=== PATIENT | male | born 1945 | race Caucasian/White ===

== ENCOUNTER 2021-03-29 10:48 | Emergency (ER) | payer OTHER, SELFPAY ==
[2021-03-29] VITALS (15 sets, daily range): BP systolic 147–180; BP diastolic 78–107; PULSE 80–98; RESP 16–32; TEMP 36.6; O2SAT 91–97; BMI 24.4
--- NOTE | 2021-03-29 11:13 | ED_ITS ---
HPI - Abdominal Pain General Chief Complaint: Urogenital-Male Stated Complaint: pee or poop for 4 days Time Seen by Provider: 03/29/21 11:05 History of Present Illness HPI narrative: Patient is 75-year-old male history of diabetes presenting with inability to have a bowel movement or urinate for 4 days. He states has not urinated for 4 days he occasionally has some dribbling. He said increased abdominal distention and no bowel movement either. Prior history of exploratory laparotomy. He denies any nausea vomiting fever. He has no chest pain. He is in quite a bit of discomfort. Bladder scan only shows 297. He does self cath at home. He has been doing intermittently over the last 4 days. Does not remember when his last bowel movement was Related Data Home Medications Medication Instructions Recorded Confirmed CA PANTOTHENATE/FOLIC ACID/VIT 1 tab PO QDAY #0 08/01/12 (MULTIVITAMIN) Doxazosin Mesylate (DOXAZOSIN) 8 mg PO HS #0 08/01/12 Oxycodone (OXYCODONE IR) 10 mg PO TID #0 08/01/12 POLYETHYLENE GLYCOL 3350 17 gm PO QDAY #0 08/01/12 atorvastatin 40 mg tablet (Lipitor) 40 mg PO HS #0 08/01/12 baclofen 10 mg tablet 10 mg PO TID #0 08/01/12 citalopram 20 mg tablet 20 mg PO QDAY #0 08/01/12 clonazepam 0.5 mg tablet 0.5 mg PO TID #0 08/01/12 docusate sodium 250 mg capsule 250 mg PO BID #0 08/01/12 omeprazole 20 mg capsule,delayed 20 mg PO QDAY #0 08/01/12 release warfarin 7.5 mg tablet (Coumadin) 7.5 mg PO QDAY #0 08/01/12 Previous Rx's Medication Instructions Recorded magnesium citrate 300 ml PO DAILY PRN #296 ml 03/29/21 Allergies Allergy/AdvReac Type Severity Reaction Status Date / Time THORAZINE Allergy Intermediate Uncoded 12/28/17 12:23 ADHESIVE Allergy Unknown Uncoded 12/28/17 12:23 Review of Systems Review of Systems Narrative: GENERAL: Denies chills, fatigue, malaise, fever, sweats, travel HEENT: Denies sinus pain, ear pain, sore throat, difficulty swallowing, neck pain RESPIRATORY: Denies dyspnea, cough, wheezing, hemoptysis, sputum. CARDIOVASCULAR: Denies chest pain, palpitations, orthopnea, edema GASTROINTESTINAL: See HPI : See HPI history of BPH MUSCULOSKELETAL: Denies weakness, joint pain, or bony pain SKIN: No rash, no erythema, no pruritus NEUROLOGIC: Denies weakness, dizziness, headache, numbness, change in speech, confusion PSYCHIATRIC: No concerning psychosocial issues. 12 point review of systems is negative except for those stated above and HPI Exam Initial Vital Signs Initial Vital Signs: Vital Signs Temperature 97.9 F 03/29/21 10:55 Pulse Rate 85 03/29/21 10:55 Respiratory Rate 18 03/29/21 10:55 Blood Pressure 180/104 H 03/29/21 10:55 Pulse Oximetry 97 03/29/21 10:55 GENERAL: Alert 75 year appears uncomfortable HEENT: Head atraumatic,EOMI, pupils reactive, face symmetric, [moist] mucous membranes CARDIOVASCULAR: Regular rate and rhythm without murmurs, rubs or gallops. RESPIRATORY: Breath sounds equal bilaterally, no wheezes rales or rhonchi. ABDOMEN: Distention decreased bowel sounds scar noted no localization of pain no guarding or rebound EXTREMITIES: Normal range of motion, no clubbing or edema. Neurovascularly intact NEUROLOGICAL: Alert and oriented x4.Normal gait and speech. Cranial nerves II through XII grossly intact. SKIN: Warm, dry, no laceration, no petechiae, no rashes or lesions. Course Orders Ordered: ED Orders 03/29/21 11:13 CT abdomen pelvis w con Stat 03/29/21 11:31 Urine Microscopic Stat 03/29/21 12:50 EKG-12 Lead Stat 03/29/21 13:15 Complete Blood Count AUTO DIFF Stat Comprehensive Metabolic Panel Stat Lipase Stat Troponin & CK Cardiac Panel Stat Discontinued Medications Sodium Chloride (Normal Saline 0.9%) 1,000 mls @ 1,000 mls/hr IV BOLUS ONE Stop: 03/29/21 14:34 Last Infusion: 03/29/21 15:27 Dose: 0 mls/hr Documented by: Admin: 03/29/21 13:46 Dose: 1,000 mls/hr Documented by: ANAMARIA Lidocaine HCl (Lidocaine 2% (Glydo) 6 Ml Gel) 12 ml TOP NOW ONE Stop: 03/29/21 14:16 Last Admin: 03/29/21 14:28 Dose: 12 ml Documented by: MINO Morphine Sulfate (Morphine 2 Mg/Ml Inj) 2 mg IV NOW ONE Stop: 03/29/21 12:21 Last Admin: 03/29/21 12:48 Dose: 2 mg Documented by: ANAMARIA Ondansetron HCl (Ondansetron 4 Mg/2 Ml Inj) 4 mg IV NOW ONE Stop: 03/29/21 12:21 Last Admin: 03/29/21 12:48 Dose: 4 mg Documented by: ANAMARIA Vital Signs Vital signs: Vital Signs - 8 hr 03/29/21 12:43 03/29/21 12:45 03/29/21 12:47 Pulse Rate 96 H 98 H 85 Respiratory Rate 32 H 31 H 21 Blood Pressure 176/107 H Pulse Oximetry 96 03/29/21 13:00 03/29/21 13:01 03/29/21 13:15 Pulse Rate 82 86 81 Respiratory Rate 18 16 22 Blood Pressure 147/78 H Pulse Oximetry 93 94 93 03/29/21 13:37 03/29/21 13:45 03/29/21 14:13 Pulse Rate 85 82 80 Respiratory Rate 20 19 17 Blood Pressure 166/84 H Pulse Oximetry 91 92 96 03/29/21 14:15 03/29/21 14:30 03/29/21 14:45 Pulse Rate 85 80 83 Respiratory Rate 22 20 22 Blood Pressure Pulse Oximetry 96 95 03/29/21 15:00 03/29/21 15:26 Pulse Rate 80 80 Respiratory Rate 18 18 Blood Pressure 174/89 H Pulse Oximetry 94 95 MDM - Abdominal Pain Lab Data Result diagrams: 03/29/21 13:15 03/29/21 13:15 Labs: Lab Results 03/29/21 03/29/21 03/29/21 Range/Units 11:31 13:15 13:15 WBC 6.0 (4.5-11.0) X10^3/uL RBC 4.54 (4.5-5.9) X10^6/uL Hgb 14.8 (13.5-17.5) g/dL Hct 43.7 (41-53) % MCV 96.3 (80-100) fL MCH 32.7 (26-34) PG MCHC 34.0 (30-36) % RDW 13.6 (11.6-14.8) % Plt Count 180 (150-400) X10^3/uL Neut % (Auto) 65.8 (50-75) % Lymph % (Auto) 21.7 L (25-40) % [place] % (Auto) 9.6 (3-14) % Eos % (Auto) 2.1 (2-4) % Baso % (Auto) 0.8 (0-2) % Neut # (Auto) 3900 (7857-2887) /uL Lymph # (Auto) 1300 (8739-4377) /uL [place] # (Auto) 600 (0-900) /uL Eos # (Auto) 100 (0-450) /uL Baso # (Auto) 0 (0-100) /uL Sodium 142 (137-145) mmol/L Potassium 4.7 (3.4-5.1) mmol/L Chloride 107 (98-107) mmol/L Carbon Dioxide 26 (22-32) mmol/L BUN 20 (9-20) mg/dL Creatinine 0.62 L (0.66-1.25) mg/dL Estimated GFR > 60.0 (>60) mL/min BUN/Creatinine Ratio 32.3 H (6-22) Glucose 144 H (80-110) mg/dL Calcium 10.4 H (8.4-10.2) mg/dL Total Bilirubin 1.5 H (0.2-1.3) mg/dL AST 36 (17-59) IU/L ALT 54 H (<50) IU/L Alkaline Phosphatase 72 (38-126) U/L Total Creatine Kinase (55-170) U/L CK-MB (CK-2) CK-MB (CK-2) Rel Index Troponin I (0.01-0.034) ng/mL Total Protein 7.2 (6.3-8.2) g/dL Albumin 4.4 (3.5-5.0) g/dL Globulin 2.8 (1.7-4.1) g/dL Albumin/Globulin Ratio 1.6 (1.0-2.8) Lipase 102 (23-300) U/L Urine RBC 0-1/hpf (0-5/HPF) Urine WBC None seen (0-5/HPF) Amorphous Sediment 1+ Urine Bacteria None seen (None) Ur Culture Indicated? Cult not indicated 03/29/21 Range/Units 13:15 WBC (4.5-11.0) X10^3/uL RBC (4.5-5.9) X10^6/uL Hgb (13.5-17.5) g/dL Hct (41-53) % MCV (80-100) fL MCH (26-34) PG MCHC (30-36) % RDW (11.6-14.8) % Plt Count (150-400) X10^3/uL Neut % (Auto) (50-75) % Lymph % (Auto) (25-40) % [place] % (Auto) (3-14) % Eos % (Auto) (2-4) % Baso % (Auto) (0-2) % Neut # (Auto) (5205-4263) /uL Lymph # (Auto) (7812-2961) /uL [place] # (Auto) (0-900) /uL Eos # (Auto) (0-450) /uL Baso # (Auto) (0-100) /uL Sodium (137-145) mmol/L Potassium (3.4-5.1) mmol/L Chloride (98-107) mmol/L Carbon Dioxide (22-32) mmol/L BUN (9-20) mg/dL Creatinine (0.66-1.25) mg/dL Estimated GFR (>60) mL/min BUN/Creatinine Ratio (6-22) Glucose (80-110) mg/dL Calcium (8.4-10.2) mg/dL Total Bilirubin (0.2-1.3) mg/dL AST (17-59) IU/L ALT (<50) IU/L Alkaline Phosphatase (38-126) U/L Total Creatine Kinase 43 L (55-170) U/L CK-MB (CK-2) TNP CK-MB (CK-2) Rel Index TNP Troponin I < 0.012 (0.01-0.034) ng/mL Total Protein (6.3-8.2) g/dL Albumin (3.5-5.0) g/dL Globulin (1.7-4.1) g/dL Albumin/Globulin Ratio (1.0-2.8) Lipase (23-300) U/L Urine RBC (0-5/HPF) Urine WBC (0-5/HPF) Amorphous Sediment Urine Bacteria (None) Ur Culture Indicated? Point of care testing: Urine Dip Bedside Urine Glucose Negative Bedside Urine Bilirubin + 1 Bedside Urine Ketone +/- 5 Urine Specific [place] 1.030 Bedside Urine Occult Blood - Negative Bedside Urine pH 6.0 Bedside Urine Protein - Negative Bedside Urine Urobilinogen - Negative Bedside Urine Nitrite - Negative Imaging Data CT scan - abdomen/pelvis: Radiologist's Impression: PROCEDURE: CT ABDOMEN PELVIS W CON INDICATIONS: ab pain TECHNIQUE: After the administration of intravenous contrast, axial sections acquired from the lung bases to the pubic symphysis. Coronal and sagittal reformats were performed. For radiation dose reduction, the following was used: automated exposure control, adjustment of mA and/or kV according to patient size. COMPARISON: None. FINDINGS: Image quality: Excellent. Lung bases: Lingula scars and atelectasis. Heart: No significant findings. ABDOMEN: Liver: There is moderate hepatic steatosis. Liver is normal in size. Gallbladder: Gallbladder is normal. Biliary ducts: Unremarkable. Pancreas: Unremarkable. Spleen: Unremarkable. Adrenal Glands: Unremarkable. Kidneys and Ureters: Probably peripelvic cysts in left kidney but mild hydronephrosis cannot be excluded. There is a 1.8 cm exophytic cyst in left kidney. There is a 2.6 cm diameter cortical cyst in right kidney. No renal stones. Stomach and Bowel: There is a large amount of stool in colon. Stomach, small bowel loops, and colon are unremarkable. Peritoneum: No abnormal intraperitoneal fluid. No free air. Ventral Wall: No hernias. Abdominal Nodes: No retroperitoneal or mesenteric adenopathy by size criteria. Vessels: Aorta and inferior vena cava are normal in size. PELVIS: Pelvic Organs: Unremarkable. Bladder: Bladder wall may be thickened. Bladder is contracted with a Julian catheter. Pelvic Nodes: No enlarged lymph nodes. Miscellaneous: There is a fat containing left inguinal hernia. Bones: Mild scoliosis. Degenerative changes in lumbar spine. IMPRESSION: 1. Probably parapelvic left renal cysts although mild hydronephrosis cannot be excluded. No renal stones. 2. Hepatic steatosis. 3. A large amount of stool in colon. 4. Bladder wall may be thickened. Bladder is contracted with a Julian catheter. Dictated by: Ari Rodriguez M.D. on 03/29/2021 at 15:02 ECG Data Interpretation: Select normal sinus rhythm rate 81 VT interval 172 QRS [address] changes no T-wave inversions, no priors MDM Narrative Medical decision making narrative: Patient had Julian catheter placed 150 mL was removed. Patient was sitting on commode trying have a bowel movement BP he feels pressure in his rectum. He actually had a syncopal episode while Vals alvaing. Patient was disimpacted by nursing staff and he had a bowel movement. He overall feels significantly better. CT shows large amount of stool. He overall feels pretty unable to go home. Julian catheter is removed he has self catheterization supplies at home. Discussed with him he needs to use them has specially if he is not urinating. Also recommended stool softeners to help with bowel movements. Discharge Plan Departure Patient Disposition: Home Clinical Impression: Constipation, Acute urinary retention Instructions: DI for Constipation, DI for Urinary Retention in Men Activity Restrictions/Additional Instructions: *You have been diagnosed with constipation and urinary retention *What to do: At this time please self catheterizes every 6-8 hours if you have not urinated on her own. Increase water intake, it will help with stool. *Continue to take medications as directed MiraLax once daily Magnesium citrate 300 mL once daily until stool *Follow up with your primary care provider in 2-3 days *Return to ER if you should have increasing abdominal pain, fever, vomiting or any new, worsening or concerning symptoms Prescriptions: New magnesium citrate Solution 300 ml PO DAILY PRN (Reason: constipation) Qty: 296 RF: 0 No Action atorvastatin [Lipitor] 40 MG tablet 40 mg PO HS Qty: 0 RF: 0 citalopram 20 MG tablet 20 mg PO QDAY Qty: 0 RF: 0 omeprazole 20 MG capsule,delayed release(DR/EC) 20 mg PO QDAY Qty: 0 RF: 0 clonazepam 0.5 MG tablet 0.5 mg PO TID Qty: 0 RF: 0 docusate sodium 250 MG capsule 250 mg PO BID Qty: 0 RF: 0 CA PANTOTHENATE/FOLIC ACID/VIT (MULTIVITAMIN) 1 tab PO QDAY Qty: 0 RF: 0 Doxazosin Mesylate (DOXAZOSIN) 8 mg PO HS Qty: 0 RF: 0 Oxycodone (OXYCODONE IR) 10 mg PO TID Qty: 0 RF: 0 warfarin [Coumadin] 7.5 MG tablet 7.5 mg PO QDAY Qty: 0 RF: 0 baclofen 10 MG tablet 10 mg PO TID Qty: 0 RF: 0 POLYETHYLENE GLYCOL 3350 17 gm PO QDAY Qty: 0 RF: 0 Referrals: Lizandro Badillo MD [Primary Care Provider] -
--- NOTE | 2021-03-29 12:38 | PC.NURSE ---
urine retention and constipation x 4 days, bladder scan approx 300 cc, cath placed 750 cc andrew urine obtained
[2021-03-29 12:41] LABS: Bacteria Urine None Seen; WBC Urine None Seen (0-5/HPF)
[2021-03-29] MEDS: ONDANSETRON 4 MG/2 ML INJ IV (12:48)
[2021-03-29] MEDS: MORPHINE 2 MG/ML INJ IV (12:48)
[2021-03-29 12:49] LABS: Amorphous Sediment Urine 1+; Culture Indicated Urine Cult Not Indicated; RBC Urine 0-1/HPF (0-5/HPF)
--- NOTE | 2021-03-29 13:11 | PC.NURSE ---
While up to commode, patient had episode where he was not talking and dropped head to chest. With stimulation became a/o and was able to transfer back to the bed w/ 1 assist. environmental monitoring technician showed no change, remained in NSR in the 80s. Pt denies chest pain, shortness of breath. Requesting Dilaudid for abd pain. Discussed morphine vs dilaudid and pt was given ordered morphine.
[2021-03-29 13:21] LABS: Add Manual Diff / Slide Review NO; Basophils Absolute Auto 0 /uL (0-100); Basophils Percent Auto 0.8 % (0-2); Eosinophils Absolute Auto 100 /uL (0-450); Eosinophils Percent Auto 2.1 % (2-4); Hematocrit 43.7 % (41-53); Hemoglobin 14.8 g/dL (13.5-17.5); Lymphocytes Absolute Auto 1300 /uL (1100-4500); Lymphocytes Percent Auto 21.7 % (25-40); Mean Corpuscular Hemoglobin 32.7 PG (26-34); Mean Corpuscular Volume 96.3 fL (80-100); Monocytes Absolute Auto 600 /uL (0-900); Monocytes Percent Auto 9.6 % (3-14); Neutrophils Absolute Auto 3900 /uL (1500-7000); Neutrophils Percent Auto 65.8 % (50-75); Platelet Count 180 X10^3/uL (150-400); Red Blood Cell Count 4.54 X10^6/uL (4.5-5.9); Red Cell Distribution Width 13.6 % (11.6-14.8)
[2021-03-29 13:33] LABS: Alanine Aminotransferase 54 IU/L (<50); Albumin 4.4 g/dL (3.5-5.0); Albumin Globulin Ratio 1.6 (1.0-2.8); Alkaline Phosphatase 72 U/L (38-126); Aspartate Aminotransferase 36 IU/L (17-59); BUN Creatinine Ratio 32.3 (6-22); Bilirubin Total 1.5 mg/dL (0.2-1.3); Blood Urea Nitrogen 20 mg/dL (9-20); Calcium 10.4 mg/dL (8.4-10.2); Carbon Dioxide 26 mmol/L (22-32); Chloride 107 mmol/L (98-107); Creatine Kinase 43 U/L (55-170); Estimated Glomerular Filt Rate > 60.0 mL/min (>60); Globulin 2.8 g/dL (1.7-4.1); Glucose 144 mg/dL (80-110); HEMOLYSIS < 15 (0-50); Lipase 102 U/L (23-300); Potassium 4.7 mmol/L (3.4-5.1); Sodium 142 mmol/L (137-145); Total Protein 7.2 g/dL (6.3-8.2)
[2021-03-29 13:44] LABS: Troponin I < 0.012 ng/mL (0.01-0.034)
[2021-03-29] MEDS: SODIUM CHLORIDE 0.9% 1,000 ML 1000 ML IV (13:46)
[2021-03-29] MEDS: LIDOCAINE 2% (GLYDO) 6 ML GEL 12 ML TOP (14:28)
--- NOTE | 2021-03-29 14:28 | PC.NURSE ---
after pre-medication of lidocaine jelly, manual disimpaction of moderate to large amount of hard stool. Pt then up to commode. States he feels improved after disiimpaction.
== END 2021-03-29 15:44 | disposition home or self-care (01) ==
PROVIDERS: Emergency Provider Emergency Medicine; Family Provider Family Medicine; PCP Family Medicine
DX: K59.00 Constipation, unspecified (principal); R33.8 Other retention of urine
CPT/HCPCS: 36415; 51702; 51798; 74177; 80053; 81003; 81015; 82550; 83690; 84484; 85025; 93005; 93010; 96361; 96374; 96375; 99284; 99285; J2270; J2405; Q9967